=== PATIENT | female | born 1960 | race Caucasian/White ===

== ENCOUNTER 2018-06-27 23:02 | Emergency (ER) | payer OTHER ==
[~2018-06-27] VITALS: Ht 162.6 cm; Wt 77.1 kg
[~2018-06-27 23:02] MED LIST: ACETAMINOPHEN-1 EAC1 PO; BENADRYL25 MG PO; HYDROCHLOROTHIA25 M1 PO; KEFLEX500 M1 PO; LOPRESSOR100 M1 PO; MEDROL DOSPAK21 TAB PO; NORCO 5-325 TA1 EACH PO; PERCOCET 5-3251 EACH PO; TOPROL XL100 MG PO
[2018-06-28 00:17] LABS: AMP/METHAMP POSITIVE (Negative); BARBITURATES Negative (Negative); BENZODIAZEPINES Negative (Negative); COCAINE Negative (Negative); METHADONE Negative (Negative); OPIATES Negative (Negative); PCP Negative (Negative)
[2018-06-28 00:20] LABS: ABSOLUTE NEUTROPHILS 3.6 thou/uL (1.4-8.2); BASOPHILS 1.4 % (0.0-2.0); EOSINOPHILS 2.4 % (0.0-3.0); HEMATOCRIT 31.8 % (37.0-47.0); LYMPHOCYTES 29.1 % (24.0-44.0); MCH 29.5 pg (26.0-34.0); MCHC 34.6 g/dL (28.0-37.0); MCV 85.1 fL (80.0-100.0); MONOCYTES 8.5 % (1.0-8.0); PLATELET COUNT 294 thou/uL (150-400); POLYS 58.6 % (36.0-66.0); RBC 3.74 mil/uL (4.20-5.00); RDW 12.6 % (10.5-14.5); WBC 6.2 thou/uL (4.0-11.0)
[2018-06-28 00:27] LABS: CALCIUM 9.2 mg/dL (8.5-10.1); CREATININE 1.1 mg/dL (0.6-1.0)
[2018-06-28 17:51] VITALS: BP 142/80
== END 2018-06-28 17:51 | disposition short-term general hospital (02) ==
LOC: ER 23:02
PROVIDERS: Student in an Organized Health Care Education/Training Program
DX: F22 Delusional disorders (principal); F23 Brief psychotic disorder; I10 Essential (primary) hypertension; Z90.89 Acquired absence of other organs

== ENCOUNTER 2020-01-01 12:25 | Emergency (ER) | payer OTHER ==
[~2020-01-01] VITALS: Ht 160 cm; Wt 81.7 kg
[2020-01-01 14:44] LABS: ABSOLUTE NEUTROPHILS 3.1 thou/uL (1.4-8.2); BASOPHILS 0.5 % (0.0-2.0); EOSINOPHILS 3.7 % (0.0-3.0); HEMATOCRIT 34.8 % (37.0-47.0); HEMOGLOBIN 11.6 gm/dL (12.0-15.0); LYMPHOCYTES 27.9 % (24.0-44.0); MCH 29.9 pg (26.0-34.0); MCHC 33.4 g/dL (28.0-37.0); MCV 89.6 fL (80.0-100.0); MONOCYTES 7.4 % (1.0-8.0); PLATELET COUNT 277 thou/uL (150-400); POLYS 60.5 % (36.0-66.0); RBC 3.89 mil/uL (4.20-5.00); RDW 13.2 % (10.5-14.5); WBC 5.1 thou/uL (4.0-11.0)
[2020-01-01 14:52] LABS: CALCIUM 8.9 mg/dL (8.5-10.1); CREATININE 0.9 mg/dL (0.6-1.0); POTASSIUM 4.2 mmol/L (3.5-5.1)
[2020-01-01 14:55] LABS: URINE BILIRUBIN NEGATIVE (Negative); URINE BLOOD NEGATIVE (Negative); URINE CLARITY CLEAR; URINE COLOR YELLOW; URINE GLUCOSE-RANDOM* NEGATIVE (Negative); URINE KETONES NEGATIVE (Negative); URINE LEUKOCYTES-REFLEX NEGATIVE (Negative); URINE NITRITE-REFLEX NEGATIVE (Negative); URINE PROTEIN (DIPSTICK) NEGATIVE (Negative); URINE SPECIFIC GRAVITY 1.025 (1.005-1.035); URINE UROBILINOGEN 0.2 E.U./dl (0.2-1.0)
[2020-01-01 14:57] LABS: ALBUMIN 3.7 g/dL (3.4-5.0); SALICYLATE 2.9 mg/dL (2.8-20.0); TOTAL BILIRUBIN 0.2 mg/dL (0.2-1.0); TOTAL PROTEIN 7.3 g/dL (6.4-8.2)
[2020-01-01 15:03] LABS: AMP/METHAMP Negative (Negative); BARBITURATES Negative (Negative); BENZODIAZEPINES Negative (Negative); COCAINE Negative (Negative); METHADONE Negative (Negative); OPIATES Negative (Negative); PCP Negative (Negative)
[2020-01-01 17:06] VITALS: BP 144/94
--- NOTE | 2020-01-03 07:38 | EKG ---
[facility] [place] [address] [place] [address] ELECTROCARDIOGRAM REPORT Name: MAXIMINO RUCKER Room #: [facility]#: [id number] Admission: 01/01/20 Attend Phys: Discharge: 01/01/20 Date of : 60 Report #: [id number] THIS REPORT FOR: cc: AMOR - Ese family physician/PCP AMOR - Ese family physician/PCP Lc Arzate MD [facility] THIS REPORT FOR: //name// [facility] ED Test Date: 2020-01-01 Test Time: 14:35:02 Pat Name: MAXIMINO RUCKER Department: Room: Gender: [employer]: [facility] : 1960 Requested By: Bebeto Loja Order Number: [id number] MD: Lc Arzate Measurements Intervals [place] Rate: 67 P: 46 [place]: 169 QRS: 61 QRSD: 94 T: 44 QT: 410 QTc: 433 Interpretive Statements Sinus rhythm Minimal repolarization abnormality Compared to ECG 09/06/2014 23:26:39 ST (T wave) deviation now present Sinus tachycardia no longer present Electronically Signed On 01-03-2020 7:38:26 CDT by Lc Arzate [email or web address] <ELECTRONICALLY SIGNED> By: Lc Arzate MD, FAC 01/03/20 0738 1435 [id number] Lc Arzate MD, [facility] /EPI
== END 2020-01-01 17:06 | disposition home or self-care (01) ==
LOC: ER 12:25
PROVIDERS: Emergency Medicine
DX: F20.9 Schizophrenia, unspecified (principal); F22 Delusional disorders; F43.10 Post-traumatic stress disorder, unspecified; R11.2 Nausea with vomiting, unspecified; I10 Essential (primary) hypertension; E66.9 Obesity, unspecified; F17.210 Nicotine dependence, cigarettes, uncomplicated; Z90.89 Acquired absence of other organs; Z79.899 Other long term (current) drug therapy; Z68.31 Body mass index [BMI] 31.0-31.9, adult